=== PATIENT | male | born 1985 | race Caucasian/White ===

== ENCOUNTER 2017-08-09 13:29 | Inpatient (IN) | payer OTHER ==
[~2017-08-09] VITALS: Ht 190.5 cm; Wt 110.0 kg
[2017-08-09 13:31] VITALS: BP 130/87; PULSE 113; RESP 14; TEMP 98.2; O2SAT 99
[2017-08-09 14:35] LABS: BASOPHIL % 0.1 % (0.0-2.0); EOSINOPHIL # 0.1 TH/MM3 (0-0.4); EOSINOPHIL % 0.5 % (0.0-4.0); HEMATOCRIT 46.4 % (39.0-51.0); HEMOGLOBIN 15.9 GM/DL (13.0-17.0); LYMPH % 12.8 % (9.0-44.0); LYMPHOCYTE # 2.1 TH/MM3 (1.0-4.8); MEAN CELL VOLUME 83.2 FL (80.0-100.0); MEAN CORPUSCULAR HEMOGLOBIN 28.4 PG (27.0-34.0); MEAN CORPUSCULAR HGB CONC 34.2 % (32.0-36.0); MEAN PLATELET VOLUME 7.3 FL (7.0-11.0); MONO % 17.9 % (0.0-8.0); MONOCYTE # 2.9 TH/MM3 (0-0.9); NEUT % 68.7 % (16.0-70.0); PLATELET COUNT 327 TH/MM3 (150-450); RED BLOOD COUNT 5.58 MIL/MM3 (4.50-5.90); WHITE BLOOD COUNT 16.1 TH/MM3 (4.0-11.0)
[2017-08-09 14:41] LABS: INTERNATIONAL NORMALIZED RATIO 1.2 RATIO; PROTHROMBIN TIME - PATIENT 12.3 SEC (9.8-11.6)
[2017-08-09 14:53] LABS: ALT (GPT) 38 U/L (12-78); AST (GOT) 22 U/L (15-37); BICARBONATE 30.2 MEQ/L (21.0-32.0); BLOOD UREA NITROGEN 20 MG/DL (7-18); CALCIUM 9.1 MG/DL (8.5-10.1); CHLORIDE 95 MEQ/L (98-107); CREATININE 1.25 MG/DL (0.60-1.30); GLOMERULAR FILTRATION RATE 67 ML/MIN (>89); GLUCOSE,RANDOM 103 MG/DL (74-106); SODIUM (NA) 131 MEQ/L (136-145)
[2017-08-09 14:55] LABS: ALKALINE PHOSPHATASE 93 U/L (45-117); TOTAL BILIRUBIN ADULT 0.4 MG/DL (0.2-1.0); TOTAL PROTEIN 8.5 GM/DL (6.4-8.2)
--- NOTE | 2017-08-09 14:59 | PD ---
HPI Chief Complaint: Facial Pain or Swelling Time Seen by Provider: 14:35 Travel History International Travel<30 days: No Contact w/Intl Traveler<30days: No Traveled to known affect area: No History of Present Illness HPI 32-year-old male presents to the ED for evaluation of four-day history of blistering rash and 8/10 of the right side of his face. Constant, worsened by movement of the face or touch. Pain radiates into the ear, right nostril. He endorses sinus congestion and clear rhinorrhea. He endorses chills, has not measured a fever at home. He endorses increased tearing of the eye. He endorses diminished appetite. He denies headache, dizziness, blurred vision, eye pain, difficulty swallowing his own oral secretions, sore throat. Patient states the rash was preceded by "electric shock" type pain behind the right ear and radiating into the face. He was seen at an outside clinic prior to the rash outbreak and diagnosed with torticollis, prescribed benzodiazepines which he states resolved the neck pain. The next day the rash broke out on his face. He was again seen at the outside clinic and prescribed Flagyl and Cipro. He was told to seek dental follow-up. He saw the dentist and was referred to the oral surgeon who does not see a dental source for his rash. She was concerned about involvement of the medial canthus of the right-sided face and sent him to the ED for evaluation. He endorses history of chickenpox in childhood. PFSH Social History Tobacco Use: No Allergies-Medications (Allergen,Severity, Reaction): Coded Allergies: No Known Allergies (Unverified , 08/09/17) Reported Meds & Prescriptions Reported Meds & Active Scripts Active No Active Prescriptions or Reported Medications Review of Systems Except as stated in HPI: all other systems reviewed are Neg Physical Exam Narrative GENERAL: Well-nourished, well-developed SKIN: Warm and dry. Pustular rash distributed across the right cheek with surrounding warm, tender erythematous edema which includes the medial canthus of the right eye. NO CAMARA SIGN. HEAD: Normocephalic. Atraumatic. EYES: No scleral icterus. No injection or drainage. PERRLA. EOM intact and painless. Fluorescein staining of the right eye reveals no dendritic lesions. ENT: Bilateral cerumen impaction. Nasal mucosa is moist. Right-sided nares with tender edema of the lateral aspect. Oropharynx without erythema, edema or exudate. NECK: Supple, trachea midline. No JVD. + Right-sided anterior cervical lymphadenopathy. CARDIOVASCULAR: Regular rate and rhythm without murmurs, gallops, or rubs. RESPIRATORY: Breath sounds clear and equal bilaterally. No accessory muscle use. GASTROINTESTINAL: Abdomen soft, non-tender, nondistended. + Bowel sounds MUSCULOSKELETAL: No cyanosis, or edema. BACK: Nontender without obvious deformity. No CVA tenderness. Data Data Last Documented VS Vital Signs Date Time Temp Pulse Resp B/P (MAP) Pulse Ox O2 Delivery O2 Flow Rate FiO2 08/09/17 15:16 98 Room Air 08/09/17 13:31 98.2 113 14 Orders Orders Complete Blood Count With Diff (08/09/17 13:33) Comprehensive Metabolic Panel (08/09/17 13:33) Prothrombin Time / Inr (Pt) (08/09/17 13:33) Act Partial Throm Time (Ptt) (08/09/17 13:33) Lactic Acid Sepsis Protocol (08/09/17 13:33) Sepsis Workup Initiated (08/09/17 ) Blood Culture (08/09/17 14:52) Blood Glucose (08/09/17 14:52) Ecg Monitoring (08/09/17 14:52) Iv Access Insert/Monitor (08/09/17 14:52) Oximetry (08/09/17 14:52) Ketorolac Inj (Toradol Inj) (08/09/17 15:00) Methylprednisolone So Succ Inj (Solumedr (08/09/17 15:00) Sodium Chlor 0.9% 1000 Ml Inj (Ns 1000 M (08/09/17 15:15) Blood Culture (08/09/17 15:04) Vancomycin Inj (Vancomycin Inj) (08/09/17 15:15) Ct Facial Bones W Iv Contrast (08/09/17 15:06) Acyclovir (Zovirax) (08/09/17 15:45) Iohexol 350 Inj (Omnipaque 350 Inj) (08/09/17 16:04) Diet Regular Basic (08/09/17 Lunch) Consult Ophthalmology (08/09/17 ) Admit Order (Ed Use Only) (08/09/17 16:56) Labs Laboratory Tests Test 08/09/17 13:45 08/09/17 13:48 White Blood Count 16.1 TH/MM3 Red Blood Count 5.58 MIL/MM3 Hemoglobin 15.9 GM/DL Hematocrit 46.4 % Mean Corpuscular Volume 83.2 FL Mean Corpuscular Hemoglobin 28.4 PG Mean Corpuscular Hemoglobin Concent 34.2 % Red Cell Distribution Width 13.0 % Platelet Count 327 TH/MM3 Mean Platelet Volume 7.3 FL Neutrophils (%) (Auto) 68.7 % Lymphocytes (%) (Auto) 12.8 % Monocytes (%) (Auto) 17.9 % Eosinophils (%) (Auto) 0.5 % Basophils (%) (Auto) 0.1 % Neutrophils # (Auto) 11.0 TH/MM3 Lymphocytes # (Auto) 2.1 TH/MM3 Monocytes # (Auto) 2.9 TH/MM3 Eosinophils # (Auto) 0.1 TH/MM3 Basophils # (Auto) 0.0 TH/MM3 CBC Comment AUTO DIFF Differential Total Cells Counted 100 Neutrophils % (Manual) 66 % Band Neutrophils % 7 % Lymphocytes % 11 % Monocytes % 15 % Eosinophils % 1 % Neutrophils # (Manual) 11.8 TH/MM3 Differential Comment FINAL DIFF MANUAL Toxic Granulation 1+ Toxic Vacuolation PRESENT Platelet Estimate NORMAL Platelet Morphology Comment CLUMPED Prothrombin Time 12.3 SEC Prothromb Time International Ratio 1.2 RATIO Activated Partial Thromboplast Time 34.5 SEC Blood Urea Nitrogen 20 MG/DL Creatinine 1.25 MG/DL Random Glucose 103 MG/DL Total Protein 8.5 GM/DL Albumin 3.0 GM/DL Calcium Level 9.1 MG/DL Alkaline Phosphatase 93 U/L Aspartate Amino Transf (AST/SGOT) 22 U/L Alanine Aminotransferase (ALT/SGPT) 38 U/L Total Bilirubin 0.4 MG/DL Sodium Level 131 MEQ/L Potassium Level 3.8 MEQ/L Chloride Level 95 MEQ/L Carbon Dioxide Level 30.2 MEQ/L Anion Gap 6 MEQ/L Estimat Glomerular Filtration Rate 67 ML/MIN Lactic Acid Level 1.4 mmol/L [facility] Medical Decision Making Medical Screen Exam Complete: Yes Emergency Medical Condition: Yes Differential Diagnosis shingles versus cellulitis versus periorbital cellulitis versus other Narrative Course 32-year-old male presents to the ED for evaluation of four-day history of blistering rash and 8/10 of the right side of his face. Constant, worsened by movement of the face or touch. Pain radiates into the ear, right nostril. He endorses sinus congestion and clear rhinorrhea. He endorses chills, has not measured a fever at home. He endorses increased tearing of the eye. He endorses diminished appetite. Rash was preceded by "electric shock" type pain behind the right ear and radiating into the face. He was seen at outpatient clinic, prescribed Flagyl and Cipro. He sought dental follow-up at their recommendation. Oral surgeon evaluated today and does not see a dental source of the rash. He endorses childhood history of chickenpox. Patient's afebrile, pulse 113, BP 130/87 on presentation. Patient has a blistering erythematous rash across the right side of the face that does not cross the midline. The medial canthus of the right eye is involved. However, there are no dendritic lesions with fluorescein staining. He denies pain in the eye. No Mingo sign. There is positive anterior cervical lymphadenopathy on the right. IV was established. Patient was administered IV Solu-Medrol, 1 L normal saline, 30 mg Toradol. Blood cultures were obtained and the patient was administered 1 g of vancomycin. CBC: WBC 16.1 with bandemia. INR 1.2. CMP: Sodium 131, chloride 95. BUN 20, creatinine 1.25. Lactic acid 1.4. Maxillofacial CT: Subcutaneous stranding in the right infraorbital region extending laterally towards the temporal region. Findings are characteristic of regional cellulitis. No abscess. Chronic sinusitis in the right ethmoid air cells, left sphenoid sinus and bilateral posterior maxillary antra. Osseous structures intact per radiology read. Patient's meet sepsis criteria. I spoke with Dr. Valencia, lime supervisor. We discussed the physical exam findings as well as the CT. She will consult on the patient tomorrow morning. I spoke with Dr. Myers who agrees to accept the patient to the medicine service. Please see medicine notes for disposition. Sepsis Criteria SIRS Criteria (2 or more): Heart rate over 90, WBC > 83868, < 4000 or > 10% bands Sepsis Criteria (SIRS+source): Infect source susp/known Scripts No Active Prescriptions or Reported Meds Sheeba Romano Aug 09, 2017 14:59
[2017-08-09] MEDS ORDERED: KETOROLAC TROMETHAMINE 30 MG/ML (IVP) VIAL IVP ONE (15:00)
[2017-08-09] MEDS ORDERED: methylPREDNISolone SOD SUCC 125 MG/2 ML VIAL IV PUSH ONE (15:00)
[2017-08-09] MEDS ORDERED: VANCOMYCIN INJ 1,000 MG in SODIUM CHLOR 0.9% 250 ML INJ 250 ML IV ONE (15:15)
[2017-08-09] MEDS ORDERED: SODIUM CHLOR 0.9% 1000 ML INJ 1,000 ML IV ONE (15:15)
[2017-08-09 15:16] VITALS: O2SAT 98
[2017-08-09 15:42] LABS: BANDS 7 % (0-6); LYMPHOCYTES 11 % (9-44); MONOCYTES 15 % (0-8); NEUTROPHIL # MANUAL DIFF 11.8 TH/MM3 (1.8-7.7); POLYS (SEG NEUTROPHILS) 66 % (16-70)
[2017-08-09 15:43] LABS: TOXIC GRANULATION 1+ (NORMAL); TOXIC VACUOLATION PRESENT (NONE SEEN)
[2017-08-09] MEDS ORDERED: ACYCLOVIR 800 MG TAB PO ONE (15:45)
[2017-08-09] MEDS ORDERED: IOHEXOL 350 MG/ML 10 ML VIAL (for RAD DIAG) IVCONTRAST ONE (16:04)
--- NOTE | 2017-08-09 16:15 | RADRPT ---
EXAM DATE/TIME: 08/09/2017 15:59 [facility] COMPARISON: No previous studies available for comparison. INDICATIONS : Right facial redness and swelling. IV CONTRAST: 95 cc Omnipaque 350 (iohexol) IV RADIATION DOSE: 49.46 CTDIvol (mGy) MEDICAL HISTORY : None SURGICAL HISTORY : None. ENCOUNTER: Initial ACUITY: 3 days PAIN SCALE: 4/10 LOCATION: Right facial TECHNIQUE: Volumetric scanning of the facial bones was performed. Using automated exposure control and adjustme nt of the mA and/or kV according to patient size, radiation dose was kept as low as reasonably achiev able to obtain optimal diagnostic quality images. DICOM format image data is available electronicall y for review and comparison. FINDINGS: ORBITS: The orbital and infraorbital osseous structures are intact. The retroconal structures have a normal configuration. No radiopaque foreign bodies are seen. NASAL BONE: The nasal bone and maxillary spine are intact ZYGOMATIC ARCHES: Symmetric without evidence of fracture. SINUSES: Mucoperiosteal thickening in the left sphenoid, right ethmoid air cells and bilateral posterior maxil terence antra characteristic of chronic sinusitis. NASAL CAVITY: The nasal septum is intact and midline. The lacrimal ducts are intact. SOFT TISSUES: No radiopaque foreign bodies seen. Subcutaneous stranding in the right infraorbital distribution exte nding laterally. INTRACRANIAL: No intracranial air seen. CRIBIFORM PLATE: Grossly intact. CONCLUSION: 1. Subcutaneous stranding in the right infraorbital region extending laterally towards the temporal r egion. Findings are characteristic of regional cellulitis. No abscess. 2. Chronic sinusitis in the right ethmoid air cells, left sphenoid sinus and bilateral posterior maxi llary antra. 3. Osseous structures are intact Kasi Pittman MD on August 09, 2017 at 16:09 Board Certified Radiologist. This report was verified electronically.
--- NOTE | 2017-08-09 16:31 | PD ---
Physical Exam Date Seen by Provider: Aug 09, 2017 Time Seen by Provider: 15:00 Narrative I, Dr. Payan, have reviewed the advance practice practitioner's documentation and am in agreement, met with the patient face to face, made the diagnosis, and the medical decision making was done by me. *My assessment and Findings: Patient seen and evaluated with PA, please see PA note for further details. Here because of worsening facial redness, rash and pain. Sent in by urgent care. This has the appearance of a right facial cellulitis. IV antibiotics were initiated in the ER. Lab work is indicative of sepsis as well and plan would be to admit him for IV antibiotics. Laboratory Tests Test 08/09/17 13:45 08/09/17 13:48 White Blood Count 16.1 TH/MM3 (4.0-11.0) Monocytes (%) (Auto) 17.9 % (0.0-8.0) Neutrophils # (Auto) 11.0 TH/MM3 (1.8-7.7) Monocytes # (Auto) 2.9 TH/MM3 (0-0.9) Band Neutrophils % 7 % (0-6) Monocytes % 15 % (0-8) Neutrophils # (Manual) 11.8 TH/MM3 (1.8-7.7) Toxic Granulation 1+ (NORMAL) Toxic Vacuolation PRESENT (NONE SEEN) Platelet Morphology Comment CLUMPED (NORMAL) Prothrombin Time 12.3 SEC (9.8-11.6) Activated Partial Thromboplast Time 34.5 SEC (24.3-30.1) Blood Urea Nitrogen 20 MG/DL (7-18) Total Protein 8.5 GM/DL (6.4-8.2) Albumin 3.0 GM/DL (3.4-5.0) Sodium Level 131 MEQ/L (136-145) Chloride Level 95 MEQ/L (98-107) Estimat Glomerular Filtration Rate 67 ML/MIN (>89) Last [address] 08/09/17 1506 Signed Impressions: Service Date/Time: Wednesday, August 09, 2017 15:59 - CONCLUSION: 1. Subcutaneous stranding in the right infraorbital region extending laterally towards the temporal region. Findings are characteristic of regional cellulitis. No abscess. 2. Chronic sinusitis in the right ethmoid air cells, left sphenoid sinus and bilateral posterior maxillary antra. 3. Osseous structures are intact Kasi Pittman MD Data Data Last Documented VS Vital Signs Date Time Temp Pulse Resp B/P (MAP) Pulse Ox O2 Delivery O2 Flow Rate FiO2 08/09/17 15:16 98 Room Air 08/09/17 13:31 98.2 113 14 Orders Orders Complete Blood Count With Diff (08/09/17 13:33) Comprehensive Metabolic Panel (08/09/17 13:33) Prothrombin Time / Inr (Pt) (08/09/17 13:33) Act Partial Throm Time (Ptt) (08/09/17 13:33) Lactic Acid Sepsis Protocol (08/09/17 13:33) Sepsis Workup Initiated (08/09/17 ) Blood Culture (08/09/17 14:52) Blood Glucose (08/09/17 14:52) Ecg Monitoring (08/09/17 14:52) Iv Access Insert/Monitor (08/09/17 14:52) Oximetry (08/09/17 14:52) Ketorolac Inj (Toradol Inj) (08/09/17 15:00) Methylprednisolone So Succ Inj (Solumedr (08/09/17 15:00) Sodium Chlor 0.9% 1000 Ml Inj (Ns 1000 M (08/09/17 15:15) Blood Culture (08/09/17 15:04) Vancomycin Inj (Vancomycin Inj) (08/09/17 15:15) Ct Facial Bones W Iv Contrast (08/09/17 15:06) Acyclovir (Zovirax) (08/09/17 15:45) Iohexol 350 Inj (Omnipaque 350 Inj) (08/09/17 16:04) Labs Laboratory Tests Test 08/09/17 13:45 08/09/17 13:48 White Blood Count 16.1 TH/MM3 Red Blood Count 5.58 MIL/MM3 Hemoglobin 15.9 GM/DL Hematocrit 46.4 % Mean Corpuscular Volume 83.2 FL Mean Corpuscular Hemoglobin 28.4 PG Mean Corpuscular Hemoglobin Concent 34.2 % Red Cell Distribution Width 13.0 % Platelet Count 327 TH/MM3 Mean Platelet Volume 7.3 FL Neutrophils (%) (Auto) 68.7 % Lymphocytes (%) (Auto) 12.8 % Monocytes (%) (Auto) 17.9 % Eosinophils (%) (Auto) 0.5 % Basophils (%) (Auto) 0.1 % Neutrophils # (Auto) 11.0 TH/MM3 Lymphocytes # (Auto) 2.1 TH/MM3 Monocytes # (Auto) 2.9 TH/MM3 Eosinophils # (Auto) 0.1 TH/MM3 Basophils # (Auto) 0.0 TH/MM3 CBC Comment AUTO DIFF Differential Total Cells Counted 100 Neutrophils % (Manual) 66 % Band Neutrophils % 7 % Lymphocytes % 11 % Monocytes % 15 % Eosinophils % 1 % Neutrophils # (Manual) 11.8 TH/MM3 Differential Comment FINAL DIFF MANUAL Toxic Granulation 1+ Toxic Vacuolation PRESENT Platelet Estimate NORMAL Platelet Morphology Comment CLUMPED Prothrombin Time 12.3 SEC Prothromb Time International Ratio 1.2 RATIO Activated Partial Thromboplast Time 34.5 SEC Blood Urea Nitrogen 20 MG/DL Creatinine 1.25 MG/DL Random Glucose 103 MG/DL Total Protein 8.5 GM/DL Albumin 3.0 GM/DL Calcium Level 9.1 MG/DL Alkaline Phosphatase 93 U/L Aspartate Amino Transf (AST/SGOT) 22 U/L Alanine Aminotransferase (ALT/SGPT) 38 U/L Total Bilirubin 0.4 MG/DL Sodium Level 131 MEQ/L Potassium Level 3.8 MEQ/L Chloride Level 95 MEQ/L Carbon Dioxide Level 30.2 MEQ/L Anion Gap 6 MEQ/L Estimat Glomerular Filtration Rate 67 ML/MIN Lactic Acid Level 1.4 mmol/L [facility] Medical Record Reviewed: Yes Supervised Visit with CLAUDIA: Yes Diagnosis Primary Impression: Facial cellulitis Admitting Information Admitting Physician Requests: Admit Scripts No Active Prescriptions or Reported Meds Maikel Payan MD Aug 09, 2017 16:31
[2017-08-09 17:47] VITALS: BP 104/69; PULSE 82; RESP 17; TEMP 98.2; O2SAT 97
[2017-08-09] MEDS ORDERED: ACETAMINOPHEN/HYDROcodone 325 MG/10 MG TAB PO PRN (18:00)
[2017-08-09] MEDS ORDERED: LACTULOSE SYRUP 20 GM/30 ML CUP PO PRN (18:00)
[2017-08-09] MEDS ORDERED: ONDANSETRON HCL 4 MG/2 ML VIAL IVP PRN (18:00)
[2017-08-09] MEDS ORDERED: NALOXONE HCL 0.4 MG/ML AMP IV PUSH PRN (18:00)
[2017-08-09] MEDS ORDERED: SENNOSIDES 8.6 MG TAB PO PRN (18:00)
[2017-08-09] MEDS ORDERED: MORPHINE SULFATE 2 MG/ML INJ IV PUSH PRN (18:00)
[2017-08-09] MEDS ORDERED: ACETAMINOPHEN 325 MG TAB PO PRN (18:00)
[2017-08-09] MEDS ORDERED: MAGNESIUM HYDROXIDE SUSP 30 ML CUP PO PRN (18:00)
[2017-08-09] MEDS ORDERED: ACETAMINOPHEN/HYDROcodone 325 MG/5 MG TAB PO PRN (18:00)
[2017-08-09] MEDS ORDERED: BISACODYL 10 MG SUPP RECTAL PRN (18:00)
[2017-08-09] MEDS ORDERED: SODIUM CHLORIDE 0.9% FLUSH 10 ML FLUSH IV FLUSH PRN (18:00)
--- NOTE | 2017-08-09 18:16 | HHI.HP ---
HPI Service [facility] Hospitalists Primary Care Physician Non-Staff Admission Diagnosis right facial cellulitis Diagnoses: Chief Complaint: Right sided facial swelling, redness and pain Travel History International Travel<30 Days: No Contact w/Intl Traveler <30 Da: No Traveled to Known Affected Are: No Sepsis Criteria SIRS Criteria (2 or more): Heart rate over 90, WBC > 71077, < 4000 or > 10% bands Sepsis Criteria (SIRS+source): Infect source susp/known Criteria Outcome: Meets sepsis criteria History of Present Illness Written by Jayda Castro, acting as scribe for Dr. Myers on 08/09/17 at 18: 15. This is a 32-year-old male without any significant past medical history who presents to [facility] ED with complaints of right-sided facial pain, swelling and erythema x 4 days. Patient states on Monday he developed tender right sided bump followed by worsening redness, swelling and pain over the right side of the face. He went to urgent care on Monday and was prescribed clindamycin and Flagyl. Despite being compliant with medication, patient's symptoms continued to worsen. He was seen by a dentist this morning and was then referred to an oral surgeon who did not believe that he had a dental source for the right-sided facial rash and advised him to come into the ED. He endorses associated fever, chills and night sweats for the past 3 days. He did not record his temperature. He reports generalized feeling of malaise, nausea and poor appetite. States that he's had frontal headache for the past 3 days. He denies any difficulty swallowing or opening his mouth. He endorses associated nasal congestion and clear rhinorrhea but does report that he had some blood-tinged mucus this morning. He denies any vision changes or eye pain. He denies any ear pain or drainage. He denies any ill contacts at home. He denies any history of STDs. He does endorse history of chickenpox as a child. The past 2-3 weeks he states he's had mild sore throat and increased nasal congestion. He denies any chest pain or shortness of breath. Denies any vomiting or abdominal pain. Review of Systems Except as stated in HPI: all other systems reviewed are Neg Past Family Social History Past Medical History Patient denies any previous medical history Past Surgical History Patient denies any previous surgical history Reported Medications Patient denies any home medications Allergies: Coded Allergies: No Known Allergies (Unverified , 08/09/17) Family History Reviewed with patient, noncontributory Social History Patient denies any tobacco use. He reports occasional 2 drinks/month EtOH consumption. He denies any illicit drug use. Physical Exam Vital Signs Vital Signs Date Time Temp Pulse Resp B/P (MAP) Pulse Ox O2 Delivery O2 Flow Rate FiO2 08/09/17 17:47 98.2 82 17 104/69 (81) 97 Room Air 08/09/17 15:16 98 Room Air 08/09/17 13:31 98.2 113 14 130/87 (101) 99 Physical Exam GENERAL: This is a well-nourished, well-developed young male patient, in no apparent distress. Awake and alert. Appears comfortable at present. SKIN: Warm and dry. (+) Right-sided pustular facial rash with warmth, edema and extensive erythema. (+)tender to palpation. No apparent involvement of the right ear or right eye. Few scattered keloid scars on upper back and chest. HEAD: Atraumatic. EYES: Pupils equal round and reactive. Extraocular motions intact. No scleral icterus. No injection or drainage. ENT: Nose without bleeding, purulent drainage or septal hematoma. Throat without erythema, tonsillar hypertrophy or exudate. Uvula midline. Airway patent. NECK: Trachea midline. No lymphadenopathy. Supple, nontender, no meningeal signs. CARDIOVASCULAR: Regular rate and rhythm without murmurs, gallops, or rubs. RESPIRATORY: Clear to auscultation. Breath sounds equal bilaterally. No wheezes , rales, or rhonchi. GASTROINTESTINAL: Abdomen soft, non-tender, nondistended. No hepato-splenomegaly , or palpable masses. No guarding. MUSCULOSKELETAL: Extremities without clubbing, cyanosis, or edema. No joint tenderness, effusion, or edema noted. No calf tenderness. NEUROLOGICAL: Awake and alert. Cranial nerves II through XII grossly intact. Motor and sensory grossly within normal limits. Five out of 5 muscle strength in all muscle groups. Normal speech. Laboratory Laboratory Tests Test 08/09/17 13:45 08/09/17 13:48 White Blood Count 16.1 Red Blood Count 5.58 Hemoglobin 15.9 Hematocrit 46.4 Mean Corpuscular Volume 83.2 Mean Corpuscular Hemoglobin 28.4 Mean Corpuscular Hemoglobin Concent 34.2 Red Cell Distribution Width 13.0 Platelet Count 327 Mean Platelet Volume 7.3 Neutrophils (%) (Auto) 68.7 Lymphocytes (%) (Auto) 12.8 Monocytes (%) (Auto) 17.9 Eosinophils (%) (Auto) 0.5 Basophils (%) (Auto) 0.1 Neutrophils # (Auto) 11.0 Lymphocytes # (Auto) 2.1 Monocytes # (Auto) 2.9 Eosinophils # (Auto) 0.1 Basophils # (Auto) 0.0 CBC Comment AUTO DIFF Differential Total Cells Counted 100 Neutrophils % (Manual) 66 Band Neutrophils % 7 Lymphocytes % 11 Monocytes % 15 Eosinophils % 1 Neutrophils # (Manual) 11.8 Differential Comment FINAL DIFF MANUAL Toxic Granulation 1+ Toxic Vacuolation PRESENT Platelet Estimate NORMAL Platelet Morphology Comment CLUMPED Prothrombin Time 12.3 Prothromb Time International Ratio 1.2 Activated Partial Thromboplast Time 34.5 Blood Urea Nitrogen 20 Creatinine 1.25 Random Glucose 103 Total Protein 8.5 Albumin 3.0 Calcium Level 9.1 Alkaline Phosphatase 93 Aspartate Amino Transf (AST/SGOT) 22 Alanine Aminotransferase (ALT/SGPT) 38 Total Bilirubin 0.4 Sodium Level 131 Potassium Level 3.8 Chloride Level 95 Carbon Dioxide Level 30.2 Anion Gap 6 Estimat Glomerular Filtration Rate 67 Lactic Acid Level 1.4 Date/Time Source Procedure Growth Status 08/09/17 15:10 Blood Line Aerobic Blood Culture Pending Received 08/09/17 15:10 Blood Line Anaerobic Blood Culture Pending Received Result Diagram: 08/09/17 1345 08/09/17 1345 Imaging Last Impressions Maxillofacial CT 08/09/17 1506 Signed Impressions: Service Date/Time: Wednesday, August 09, 2017 15:59 - CONCLUSION: 1. Subcutaneous stranding in the right infraorbital region extending laterally towards the temporal region. Findings are characteristic of regional cellulitis. No abscess. 2. Chronic sinusitis in the right ethmoid air cells, left sphenoid sinus and bilateral posterior maxillary antra. 3. Osseous structures are intact MD Salty [place] VTE Risk Assessment Salty VTE Risk Assessment: No/Low Risk (score <= 1) Salty Risk Assessment Model Point Value = 1 Point Value = 2 Point Value = 3 Point Value = 5 Age 41-60 Minor surgery BMI > 25 kg/m2 Swollen legs Varicose veins or History of unexplained or recurrent spontaneous Oral contraceptives or hormone replacement Sepsis (< 1 month) Serious lung disease, including pneumonia (< 1 month) Abnormal pulmonary function Acute myocardial infarction Congestive heart failure (< 1 month) History of inflammatory bowel disease Medical patient at bed rest Age 61-74 Arthroscopic surgery Major open surgery (> 45 min) Laparoscopic surgery (> 45 min) Malignancy Confined to bed (> 72 hours) Immobilizing plaster cast Central venous access Age >= 75 History of VTE Family history of VTE Factor V Leiden Prothrombin [id number] Lupus anticoagulant Anticardiolipin antibodies Elevated serum homocysteine Heparin-induced thrombocytopenia Other congenital or acquired thrombophilia Stroke (< 1 month) Elective arthroplasty Hip, pelvis, or leg fracture Acute spinal cord injury (< 1 month) Prophylaxis Regimen Total Risk Factor Score Risk Level Prophylaxis Regimen 0-1 Low Early ambulation 2 Moderate Order ONE of the following: *Sequential Compression Device (SCD) *Heparin 5000 units SQ BID 3-4 Higher Order ONE of the following medications: *Heparin 5000 units SQ TID *Enoxaparin/Lovenox 40 mg SQ daily (WT < 150 kg, CrCl > 30 mL/min) *Enoxaparin/Lovenox 30 mg SQ daily (WT < 150 kg, CrCl > 10-29 mL/min) *Enoxaparin/Lovenox 30 mg SQ BID (WT < 150 kg, CrCl > 30 mL/min) AND/OR *Sequential Compression Device (SCD) 5 or more Highest Order ONE of the following medications: *Heparin 5000 units SQ TID (Preferred with Epidurals) *Enoxaparin/Lovenox 40 mg SQ daily (WT < 150 kg, CrCl > 30 mL/min) *Enoxaparin/Lovenox 30 mg SQ daily (WT < 150 kg, CrCl > 10-29 mL/min) *Enoxaparin/Lovenox 30 mg SQ BID (WT < 150 kg, CrCl > 30 mL/min) AND *Sequential Compression Device (SCD) Assessment and Plan Assessment and Plan 32-year-old male without any significant past medical history who presents to [facility] ED with complaints of right-sided facial pain, swelling and erythema x 4 days. Sepsis with leukocytosis, bandemia, tachycardia and right sided facial cellulitis - IVF - monitor white count - IV Vancomycin, consult pharmacy to dose - follow up on blood culture results Right sided facial cellulitis, failed outpatient treatment Suspect Erysipelas - CT maxillofacial shows subcutaneous stranding in the right infraorbital region extending laterally towards the temporal region findings characteristic of regional cellulitis, no abscess, chronic sinusitis, images reviewed by me - Consult ID, appreciate assistance - IV acyclovir, vancomycin and steroids - Pain management with bowel regimen - obtain HSV culture - Ophthalmology consulted while patient in the ED, appreciate assistance Hyponatremia - Suspect due to poor oral intake/dehydration - IVF - repeat sodium level in am DVT prophylaxis - Bilateral SCD/FERNY hose Discussed Condition With ED physician, patient, ED PA Physician Certification 2 Midnight Certification Type: Admission for Inpatient Services Order for Inpatient Services The services are ordered in accordance with Medicare regulations or non- Medicare payer requirements, as applicable. In the case of services not specified as inpatient-only, they are appropriately provided as inpatient services in accordance with the 2-midnight benchmark. Estimated LOS (days): 3 3 days is the estimated time the patient will need to remain in the hospital, assuming treatment plan goals are met and no additional complications. Post-Hospital Plan: Not yet determined Jayda Castro Aug 09, 2017 18:15 Tayo Myers MD Aug 09, 2017 22:25
[2017-08-09] MEDS ORDERED: Vancomycin Consult Pharmacy 1 EA OTHER SCH (18:30)
[2017-08-09 19:54] VITALS: BP 132/79; PULSE 85; RESP 16; TEMP 98.1; O2SAT 98
[2017-08-09] MEDS: SODIUM CHLOR 0.9% 1000 ML INJ 1,000 ML IV SCH (20:18)
[2017-08-09] MEDS: SODIUM CHLORIDE 0.9% FLUSH 10 ML FLUSH IV FLUSH SCH (20:18)
[2017-08-09] MEDS: DOCUSATE SODIUM 50 MG/SENNA 8.6 MG TAB PO SCH (20:18)
[2017-08-09] MEDS: ACYCLOVIR INJ 1,050 MG in SODIUM CHLORIDE 0.9% INJ 150 ML IV SCH (20:18)
[2017-08-09] MEDS: VANCOMYCIN INJ 1,800 MG in SODIUM CHLORID 0.9% 500 ML INJ 500 ML IV SCH (22:15)
[2017-08-10] VITALS (8 sets, daily range): BP systolic 118–135; BP diastolic 70–79; PULSE 74–98; RESP 16–18; TEMP 97.7–98.7; O2SAT 95–99
[2017-08-10] MEDS: ALUMINUM/MAGNESIUM/SIMETH 30 ML CUP PO PRN ×3 (00:54→22:36)
[2017-08-10] MEDS: ACYCLOVIR INJ 1,050 MG in SODIUM CHLORIDE 0.9% INJ 150 ML IV SCH ×2 (04:20→11:45)
[2017-08-10] MEDS: SODIUM CHLOR 0.9% 1000 ML INJ 1,000 ML IV SCH ×2 (06:00→16:39)
[2017-08-10 07:19] LABS: AUTOMATED NEUTROPHIL # 15.3 TH/MM3 (1.8-7.7); HEMATOCRIT 39.9 % (39.0-51.0); LYMPH % 6.9 % (9.0-44.0); LYMPHOCYTE # 1.2 TH/MM3 (1.0-4.8); MEAN CELL VOLUME 83.5 FL (80.0-100.0); MEAN CORPUSCULAR HEMOGLOBIN 29.2 PG (27.0-34.0); MEAN PLATELET VOLUME 7.4 FL (7.0-11.0); MONO % 3.6 % (0.0-8.0); MONOCYTE # 0.6 TH/MM3 (0-0.9); NEUT % 89.5 % (16.0-70.0); PLATELET COUNT 299 TH/MM3 (150-450); RED BLOOD COUNT 4.78 MIL/MM3 (4.50-5.90); WHITE BLOOD COUNT 17.1 TH/MM3 (4.0-11.0)
[2017-08-10 07:45] LABS: ALBUMIN 2.4 GM/DL (3.4-5.0); ALKALINE PHOSPHATASE 74 U/L (45-117); ALT (GPT) 33 U/L (12-78); AST (GOT) 18 U/L (15-37); BICARBONATE 24.7 MEQ/L (21.0-32.0); BLOOD UREA NITROGEN 24 MG/DL (7-18); CALCIUM 8.3 MG/DL (8.5-10.1); CHLORIDE 101 MEQ/L (98-107); GLOMERULAR FILTRATION RATE 70 ML/MIN (>89); GLUCOSE,RANDOM 215 MG/DL (74-106); SODIUM (NA) 135 MEQ/L (136-145); TOTAL BILIRUBIN ADULT 0.3 MG/DL (0.2-1.0); TOTAL PROTEIN 7.1 GM/DL (6.4-8.2)
[2017-08-10] MEDS: SODIUM CHLORIDE 0.9% FLUSH 10 ML FLUSH IV FLUSH SCH ×2 (08:41→21:00)
[2017-08-10] MEDS: DOCUSATE SODIUM 50 MG/SENNA 8.6 MG TAB PO SCH ×2 (08:42→21:00)
[2017-08-10] MEDS: VANCOMYCIN INJ 1,800 MG in SODIUM CHLORID 0.9% 500 ML INJ 500 ML IV SCH (08:42)
[2017-08-10] MEDS ORDERED: ALPRAZolam 0.5 MG TAB PO PRN (09:00)
[2017-08-10] MEDS ORDERED: methylPREDNISolone SOD SUCC 40 MG/1 ML VIAL IV PUSH SCH (09:00)
--- NOTE | 2017-08-10 09:00 | PD.CONS ---
History of Present Illness Service Ophthalmology Consult Requested By Reason for Consult preseptal cellulitis Primary Care Physician Non-Staff Diagnoses: History of Present Illness 32 yo M c/o right-sided facial pain, swelling and erythema for 4 days. Patient states on Monday he developed tender right sided bump followed by worsening redness, swelling and pain over the right side of the face. He went to urgent care on Monday and was prescribed clindamycin and Flagyl, but symptoms continued to worsen. He was told it may be a tooth abscess so he went to see a dentist yesterday - they referred him to an oral surgeon who advised him to come into the ED. He denies any vision changes or eye pain. CT Maxillofacial consistent with right preseptal cellulitis. Past Family Social History Allergies: Coded Allergies: No Known Allergies (Unverified , 08/09/17) Physical Exam Vital Signs Vital Signs Date Time Temp Pulse Resp B/P (MAP) Pulse Ox O2 Delivery O2 Flow Rate FiO2 08/10/17 08:22 96 21 08/10/17 08:02 97.7 94 18 127/74 (91) 96 08/10/17 04:17 98.5 81 16 124/79 (94) 97 08/10/17 00:02 98.2 74 16 118/70 (86) 98 08/09/17 19:54 98.1 85 16 132/79 (96) 98 08/09/17 17:47 98.2 82 17 104/69 (81) 97 Room Air 08/09/17 15:16 98 Room Air 08/09/17 13:31 98.2 113 14 130/87 (101) 99 Physical Exam Va sc at near OD 20/20, OS 20/20 EOM full OU, no diplopia CVF full OU Pupils 2-1 no APD OU IOP normal to palpation OU Anterior exam OD - erythema and edema on right side of face and around eyelid, C/S W&Q, K clear, AC deep, pupil round, lens clear OS - normal eyelid, C/S W&Q, K clear, AC deep, pupil round, lens clear Laboratory Laboratory Tests Test 08/09/17 13:45 08/09/17 13:48 08/10/17 06:45 White Blood Count 16.1 17.1 Red Blood Count 5.58 4.78 Hemoglobin 15.9 14.0 Hematocrit 46.4 39.9 Mean Corpuscular Volume 83.2 83.5 Mean Corpuscular Hemoglobin 28.4 29.2 Mean Corpuscular Hemoglobin Concent 34.2 35.0 Red Cell Distribution Width 13.0 13.0 Platelet Count 327 299 Mean Platelet Volume 7.3 7.4 Neutrophils (%) (Auto) 68.7 89.5 Lymphocytes (%) (Auto) 12.8 6.9 Monocytes (%) (Auto) 17.9 3.6 Eosinophils (%) (Auto) 0.5 0.0 Basophils (%) (Auto) 0.1 0.0 Neutrophils # (Auto) 11.0 15.3 Lymphocytes # (Auto) 2.1 1.2 Monocytes # (Auto) 2.9 0.6 Eosinophils # (Auto) 0.1 0.0 Basophils # (Auto) 0.0 0.0 CBC Comment AUTO DIFF DIFF FINAL Differential Total Cells Counted 100 Neutrophils % (Manual) 66 Band Neutrophils % 7 Lymphocytes % 11 Monocytes % 15 Eosinophils % 1 Neutrophils # (Manual) 11.8 Differential Comment FINAL DIFF MANUAL Toxic Granulation 1+ Toxic Vacuolation PRESENT Platelet Estimate NORMAL Platelet Morphology Comment CLUMPED Prothrombin Time 12.3 Prothromb Time International Ratio 1.2 Activated Partial Thromboplast Time 34.5 Blood Urea Nitrogen 20 24 Creatinine 1.25 1.20 Random Glucose 103 215 Total Protein 8.5 7.1 Albumin 3.0 2.4 Calcium Level 9.1 8.3 Alkaline Phosphatase 93 74 Aspartate Amino Transf (AST/SGOT) 22 18 Alanine Aminotransferase (ALT/SGPT) 38 33 Total Bilirubin 0.4 0.3 Sodium Level 131 135 Potassium Level 3.8 4.0 Chloride Level 95 101 Carbon Dioxide Level 30.2 24.7 Anion Gap 6 9 Estimat Glomerular Filtration Rate 67 70 Lactic Acid Level 1.4 Date/Time Source Procedure Growth Status 08/09/17 15:10 Blood Line Aerobic Blood Culture Pending Received 08/09/17 15:10 Blood Line Anaerobic Blood Culture Pending Received Result Diagram: 08/10/17 0645 08/10/1745 Assessment and Plan Problem List: (1) Preseptal cellulitis of left eye ICD Codes: L03.213 - Periorbital cellulitis Plan: No orbital involvement. Continue IV antibiotics per primary team. Margot Valencia MD Aug 10, 2017 09:00
--- NOTE | 2017-08-10 12:41 | PD.CONS ---
History of Present Illness Service Infectious disease Consult Requested By Liz Cross Reason for Consult Evaluate patient with facial cellulitis, has lesions on the right side of the face Primary Care Physician Non-Staff Diagnoses: History of Present Illness Patient seen and examined. Records reviewed. Patient is a 32-year-old male, with no significant past medical history, presented to the hospital complaining of swelling on his right face 4 days. Patient stated that about 10 days ago he noticed a painful bump on the left side of his neck. This was associated with some shooting pain behind his right ear. He had pain with movement of his neck, and he went to the emergency room, and he was diagnosed to have torticollis. He was given a Medrol Dosepak and Valium, and his symptoms improved. The pain on his neck and ear resolved, but he still has a lump on the left neck which had gotten smaller. About for 5 days ago, he felt a mildly tender bump on his right jaw that felt like it was the beginning of a pimple. It started getting bigger, and he notices some redness initially on his jaw. He went to an urgent care center and he received an IM antibiotic, and he was instructed to follow-up with his dentist. He was given clindamycin and Flagyl. Patient stated that he was taking his antibiotics as prescribed. The redness started spreading on his right cheek, and he went to see the surgeon, and the office so his face, and instructed him to go to the hospital for further evaluation and treatment. Highest temperature has been about 99. Denies any chills. He has not had any sore throat or any other respiratory complaint. There's been no GI or any urinary complaints. Patient states that he gets pimples on and off and last time he had them it was on his chest and on his back. He denies having any problem with ingrown hair, although he is very hairy. He has not had any episode of large abscesses that required medical attention and debridement or drainage. Patient has not been febrile since admission. CT of the face is showing evidence of cellulitis on the right side of his face. His WBC is elevated. Infectious disease consultation has been requested to evaluate the patient with facial cellulitis, and some lesions on his cheek. Review of Systems Constitutional: DENIES: Fever, Chills Eyes: DENIES: Eye pain, Vision loss, Photosensitivity, Double Vision Ears, nose, mouth, throat: DENIES: Nasal discharge, Oral lesions, Throat pain, Hoarseness, Ear Pain, Sinus Pain, Toothache Respiratory: DENIES: Cough, Shortness of breath Cardiovascular: DENIES: Chest pain, Palpitations, Dyspnea on Exertion Gastrointestinal: DENIES: Abdominal pain, Constipation, Diarrhea, Nausea, Vomiting Genitourinary: DENIES: Urgency, Hematuria, Dysuria, Nocturia Musculoskeletal: DENIES: Joint pain, Joint Swelling Integumentary: COMPLAINS OF: Rash Neurologic: DENIES: Localized weakness Psychiatric: DENIES: Hallucinations Past Family Social History Allergies: Coded Allergies: No Known Allergies (Unverified , 08/09/17) Past Medical History Problem with acne when he was younger, and has developed keloid scars in his back Past Surgical History None Active Ordered Medications Current Medications Medications (Trade) Dose Ordered Sig/Lexis Route Start Time Stop Time Status Last Admin (NS Flush) 2 ml UNSCH PRN IV FLUSH 08/09/17 18:00 (NS Flush) 2 ml BID IV FLUSH 08/09/17 21:00 08/10/17 08:41 (Tylenol) 650 mg Q4H PRN PO 08/09/17 18:00 (Zofran Inj) 4 mg Q6H PRN IVP 08/09/17 18:00 (Narcan Inj) 0.4 mg UNSCH PRN IV PUSH 08/09/17 18:00 (Zeina-Colace) 1 tab BID PO 08/09/17 21:00 (Milk Of Magnesia Liq) 30 ml Q12H PRN PO 08/09/17 18:00 (Senokot) 17.2 mg Q12H PRN PO 08/09/17 18:00 (Dulcolax Supp) 10 mg DAILY PRN RECTAL 08/09/17 18:00 (Lactulose Liq) 30 ml DAILY PRN PO 08/09/17 18:00 Acyclovir Sodium 1050 mg/Sodium Chloride 150 ml @ 150 mls/hr Q8H IV 08/09/17 20:00 08/10/17 11:45 ([place] 5-325 Mg) 1 tab Q6H PRN PO 08/09/17 18:00 ([place] 10-325 Mg) 1 tab Q6H PRN PO 08/09/17 18:00 (Morphine Inj) 2 mg Q4H PRN IV PUSH 08/09/17 18:00 (SoluMEDROL INJ) 40 mg DAILY IV PUSH 08/10/17 09:00 08/10/17 08:41 Vancomycin HCl 1800 mg/Sodium Chloride 518 ml @ 250 mls/hr Q12H IV 08/09/17 21:00 08/10/17 08:42 Pharmacy Profile Note 0 ml @ 0 mls/hr UNSCH OTHER 08/09/17 18:30 Sodium Chloride 1,000 ml @ 100 mls/hr Q10H IV 08/09/17 20:00 08/09/17 20:18 Miscellaneous Information SPECIFIC LAB TO BE MELY... ONCE ONCE .XX 08/11/17 08:45 08/11/17 08:46 (Mag-Al Plus Susp Liq) 30 ml PCHS PRN PO 08/10/17 00:45 08/10/17 02:41 (Xanax) 0.5 mg Q8H PRN PO 08/10/17 09:00 Family History Noncontributory Social History Patient denies any tobacco use. He reports occasional 2 drinks/month EtOH consumption. He denies any illicit drug use. Physical Exam Vital Signs Vital Signs Date Time Temp Pulse Resp B/P (MAP) Pulse Ox O2 Delivery O2 Flow Rate FiO2 08/10/17 08:22 96 21 08/10/17 08:02 97.7 94 18 127/74 (91) 96 08/10/17 04:17 98.5 81 16 124/79 (94) 97 08/10/17 00:02 98.2 74 16 118/70 (86) 98 08/09/17 19:54 98.1 85 16 132/79 (96) 98 08/09/17 17:47 98.2 82 17 104/69 (81) 97 Room Air 08/09/17 15:16 98 Room Air 08/09/17 13:31 98.2 113 14 130/87 (101) 99 Physical Exam GENERAL: Patient is a well-nourished, well-developed male, awake and alert, not in respiratory distress. SKIN: Cool and moist. Good turgor. No generalized rash, no ecchymoses and no evidence of embolic lesions. keloid scars in his upper back. HEAD: Atraumatic. Normocephalic. No temporal wasting, or tenderness. EYES: [place] conjunctiva. No petechia or hemorrhage. Pupils equal, round and reactive to light. Has some mild periorbital edema and erythema. Extraocular movements full and intact. No scleral icterus. No injection or drainage. EARS, NOSE AND THROAT: Has indurated skin and erythema on the whole R side of face from below the right eye down to the submandibular area, with clusters of pustules close to the nose, with some crusting that looks like impetigo clusters. Nose without bleeding or purulent nasal discharge. Mucous membranes pink and moist. No oral lesions noted. No exudate. No oral thrush. No pain on tapping any of the teeth on R side lower jaw NECK: Trachea midline. Supple and not tender, no meningeal signs. Some lymphadenopathy R submandibular area CARDIOVASCULAR: Regular rate and rhythm. No murmurs, rubs or gallops heard RESPIRATORY: Clear to auscultation. Breath sounds equal bilaterally. No rales , wheezing or rhonchi ABDOMEN: Soft, non-tender, nondistended. Bowel sounds present and normoactive. No guarding. No rebound. No organomegaly. EXTREMITIES: No clubbing, cyanosis, or edema.No joint effusion, has good ROM. No calf tenderness. Well perfused and warm. NEUROLOGICAL: Awake and alert. Cranial nerves grossly intact. Motor grossly within normal limits. PSYCHIATRIC: Normal affect, calm and cooperative. LINE: No evidence of infection Laboratory Laboratory Tests Test 08/09/17 13:45 08/09/17 13:48 08/10/17 06:45 White Blood Count 16.1 17.1 Red Blood Count 5.58 4.78 Hemoglobin 15.9 14.0 Hematocrit 46.4 39.9 Mean Corpuscular Volume 83.2 83.5 Mean Corpuscular Hemoglobin 28.4 29.2 Mean Corpuscular Hemoglobin Concent 34.2 35.0 Red Cell Distribution Width 13.0 13.0 Platelet Count 327 299 Mean Platelet Volume 7.3 7.4 Neutrophils (%) (Auto) 68.7 89.5 Lymphocytes (%) (Auto) 12.8 6.9 Monocytes (%) (Auto) 17.9 3.6 Eosinophils (%) (Auto) 0.5 0.0 Basophils (%) (Auto) 0.1 0.0 Neutrophils # (Auto) 11.0 15.3 Lymphocytes # (Auto) 2.1 1.2 Monocytes # (Auto) 2.9 0.6 Eosinophils # (Auto) 0.1 0.0 Basophils # (Auto) 0.0 0.0 CBC Comment AUTO DIFF DIFF FINAL Differential Total Cells Counted 100 Neutrophils % (Manual) 66 Band Neutrophils % 7 Lymphocytes % 11 Monocytes % 15 Eosinophils % 1 Neutrophils # (Manual) 11.8 Differential Comment FINAL DIFF MANUAL Toxic Granulation 1+ Toxic Vacuolation PRESENT Platelet Estimate NORMAL Platelet Morphology Comment CLUMPED Prothrombin Time 12.3 Prothromb Time International Ratio 1.2 Activated Partial Thromboplast Time 34.5 Blood Urea Nitrogen 20 24 Creatinine 1.25 1.20 Random Glucose 103 215 Total Protein 8.5 7.1 Albumin 3.0 2.4 Calcium Level 9.1 8.3 Alkaline Phosphatase 93 74 Aspartate Amino Transf (AST/SGOT) 22 18 Alanine Aminotransferase (ALT/SGPT) 38 33 Total Bilirubin 0.4 0.3 Sodium Level 131 135 Potassium Level 3.8 4.0 Chloride Level 95 101 Carbon Dioxide Level 30.2 24.7 Anion Gap 6 9 Estimat Glomerular Filtration Rate 67 70 Lactic Acid Level 1.4 Date/Time Source Procedure Growth Status 08/09/17 15:10 Blood Line Aerobic Blood Culture - Preliminary NO GROWTH IN 1 DAY Resulted 08/09/17 15:10 Blood Line Anaerobic Blood Culture - Preliminary NO GROWTH IN 1 DAY Resulted Result Diagram: 08/10/17 0645 08/10/17 0645 Imaging RADIOLOGY STUDIES/FILMS REVIEWED Maxillofacial CT 08/09/17 1506 Signed Impressions: Service Date/Time: Wednesday, August 09, 2017 15:59 - CONCLUSION: 1. Subcutaneous stranding in the right infraorbital region extending laterally towards the temporal region. Findings are characteristic of regional cellulitis. No abscess. 2. Chronic sinusitis in the right ethmoid air cells, left sphenoid sinus and bilateral posterior maxillary antra. 3. Osseous structures are intact Kasi Pittman MD Assessment and Plan Assessment and Plan IMPRESSION Facial cellulitis R, ?had initially a small abscess in submandibular area - pustules and crusting in R cheek look impetigo, usually GAS but could be Staph aureus Sinusitis on CT Leukocytosis, likely worsened by steroids RECOMMENDATION Ancef for the cellulitis Add Levaquin, additional GPC and sinusitis coverage Stop Acyclovir, clinically does not look herpetic Stop steroids Follow progress Will determine course of Rx depending on clinical response I will follow along with you Thank you for this consultation Discussed Condition With Explained plan to the patient D/W Mary Narvaez MD Aug 10, 2017 12:41
[2017-08-10] MEDS: LEVOFLOXACIN 750 MG TAB PO SCH (14:01)
[2017-08-10] MEDS: ceFAZolin 2 GM PREMIX 50 ML IV SCH ×2 (15:01→22:36)
--- NOTE | 2017-08-10 15:27 | HHI.PR ---
Subjective Remarks Patient is restless this morning, he did not sleep at all for the last 4 days. He is unable to sleep due to anxiety. He reports his pain is adequately controlled. He reports the redness and swelling in his face has reduced slightly. Objective Vitals Vital Signs Date Time Temp Pulse Resp B/P (MAP) Pulse Ox O2 Delivery O2 Flow Rate FiO2 08/10/17 12:33 98.5 93 18 121/70 (87) 98 08/10/17 08:22 96 21 08/10/17 08:02 97.7 94 18 127/74 (91) 96 08/10/17 04:17 98.5 81 16 124/79 (94) 97 08/10/17 00:02 98.2 74 16 118/70 (86) 98 08/09/17 19:54 98.1 85 16 132/79 (96) 98 08/09/17 17:47 98.2 82 17 104/69 (81) 97 Room Air I/O 08/09/17 08/09/17 08/09/17 08/10/17 08/10/17 08/10/17 07:00 15:00 23:00 07:00 15:00 23:00 Intake Total 150 ml 518 ml Balance 150 ml 518 ml Intake IV Total 150 ml 518 ml # Voids 3 # Bowel Movements 0 Result Diagram: 08/10/17 0645 08/10/17 0645 Objective Remarks GENERAL: Well-nourished, well-developed patient. SKIN: Cellulitis of his right face extending from his chin to his right nasal bridge, firm warm tissue with superficial pustules over her right cheek HEAD: Normocephalic. EYES: No scleral icterus. No injection or drainage. NECK: Supple, trachea midline. No JVD or lymphadenopathy. CARDIOVASCULAR: Regular rate and rhythm without murmurs, gallops, or rubs. RESPIRATORY: Breath sounds equal bilaterally. No accessory muscle use. GASTROINTESTINAL: Abdomen soft, non-tender, nondistended. EXTREMITIES: No cyanosis, or edema. NEUROLOGICAL: Awake, alert, and oriented x 3. Non-focal. A/P Problem List: (1) Facial cellulitis ICD Code: L03.211 - Cellulitis of face Status: Acute Assessment and Plan Right Facial Cellulitis Failure of outpatient treatment with p.o. meds Continue Cefazolin IV and Levaquin IV (Levaquin for sinusitis coverage) Ophthalmology does not notice any ocular involvement No abscess on CT Steroids and acyclovir discontinued Appreciate infectious disease consult Appreciate ophthalmology consult Anxiety/Insomnia Xanax 0.5mg PRN Hyponatremia Nearly Resolved Will follow DVT Prophylaxis Bill Castrejon MD Aug 10, 2017 15:27
[2017-08-11 00:15] VITALS: BP 131/68; PULSE 76; RESP 14; TEMP 98; O2SAT 96
[2017-08-11 04:26] VITALS: BP 136/64; PULSE 79; RESP 14; TEMP 98; O2SAT 96
[2017-08-11] MEDS: SODIUM CHLOR 0.9% 1000 ML INJ 1,000 ML IV SCH (04:39)
[2017-08-11] MEDS: ALUMINUM/MAGNESIUM/SIMETH 30 ML CUP PO PRN (05:23)
[2017-08-11] MEDS: ceFAZolin 2 GM PREMIX 50 ML IV SCH ×2 (05:23→13:29)
[2017-08-11 07:56] VITALS: BP 119/72; PULSE 70; RESP 18; TEMP 98; O2SAT 94
[2017-08-11] MEDS ORDERED: PHARMACY ORDERED LAB ONE (08:45)
[2017-08-11] MEDS: SODIUM CHLORIDE 0.9% FLUSH 10 ML FLUSH IV FLUSH SCH (09:00)
[2017-08-11] MEDS: DOCUSATE SODIUM 50 MG/SENNA 8.6 MG TAB PO SCH (09:00)
--- NOTE | 2017-08-11 10:55 | HHI.IDPN ---
Subjective Subjective Remarks Patient is a 32-year-old male, with no significant past medical history, presented to the hospital complaining of swelling on his right face 4 days. Patient stated that about 10 days ago he noticed a painful bump on the left side of his neck. This was associated with some shooting pain behind his right ear. He had pain with movement of his neck, and he went to the emergency room, and he was diagnosed to have torticollis. He was given a Medrol Dosepak and Valium, and his symptoms improved. The pain on his neck and ear resolved, but he still has a lump on the left neck which had gotten smaller. About for 5 days ago, he felt a mildly tender bump on his right jaw that felt like it was the beginning of a pimple. It started getting bigger, and he notices some redness initially on his jaw. He went to an urgent care center and he received an IM antibiotic, and he was instructed to follow-up with his dentist. He was given clindamycin and Flagyl. Patient stated that he was taking his antibiotics as prescribed. The redness started spreading on his right cheek, and he went to see the surgeon, and the office so his face, and instructed him to go to the hospital for further evaluation and treatment. Highest temperature has been about 99. Denies any chills. He has not had any sore throat or any other respiratory complaint. There's been no GI or any urinary complaints. Patient states that he gets pimples on and off and last time he had them it was on his chest and on his back. He denies having any problem with ingrown hair, although he is very hairy. He has not had any episode of large abscesses that required medical attention and debridement or drainage. Patient has not been febrile since admission. CT of the face is showing evidence of cellulitis on the right side of his face. His WBC is elevated. Infectious disease consultation has been requested to evaluate the patient with facial cellulitis, and some lesions on his cheek. Notes reviewed No complaints R face cellulitis better Antibiotics Current Medications Ancef Levaquin Medications (Trade) Dose Ordered Sig/Lexis Route Start Time Stop Time Status Last Admin (NS Flush) 2 ml UNSCH PRN IV FLUSH 08/09/17 18:00 (NS Flush) 2 ml BID IV FLUSH 08/09/17 21:00 08/10/17 08:41 (Tylenol) 650 mg Q4H PRN PO 08/09/17 18:00 (Zofran Inj) 4 mg Q6H PRN IVP 08/09/17 18:00 (Narcan Inj) 0.4 mg UNSCH PRN IV PUSH 08/09/17 18:00 (Zeina-Colace) 1 tab BID PO 08/09/17 21:00 (Milk Of Magnesia Liq) 30 ml Q12H PRN PO 08/09/17 18:00 (Senokot) 17.2 mg Q12H PRN PO 08/09/17 18:00 (Dulcolax Supp) 10 mg DAILY PRN RECTAL 08/09/17 18:00 (Lactulose Liq) 30 ml DAILY PRN PO 08/09/17 18:00 (Marion 5-325 Mg) 1 tab Q6H PRN PO 08/09/17 18:00 (Marion 10-325 Mg) 1 tab Q6H PRN PO 08/09/17 18:00 (Morphine Inj) 2 mg Q4H PRN IV PUSH 08/09/17 18:00 Sodium Chloride 1,000 ml @ 100 mls/hr Q10H IV 08/09/17 20:00 08/11/17 04:39 (Mag-Al Plus Susp Liq) 30 ml PCHS PRN PO 08/10/17 00:45 08/11/17 05:23 (Xanax) 0.5 mg Q8H PRN PO 08/10/17 09:00 08/10/17 15:00 Cefazolin Sodium/ Dextrose 50 ml @ 100 mls/hr Q8H IV 08/10/17 14:00 08/11/17 05:23 (Levaquin) 750 mg Q24H PO 08/10/17 13:00 08/10/17 14:01 Lines PIV Past Medical History unremarkable Allergies: Coded Allergies: No Known Allergies (Unverified , 08/09/17) Objective . Vital Signs Date Time Temp Pulse Resp B/P (MAP) Pulse Ox O2 Delivery O2 Flow Rate FiO2 08/11/17 07:56 98.0 70 18 119/72 (88) 94 08/11/17 04:26 98.0 79 14 136/64 (88) 96 08/11/17 00:15 98.0 76 14 131/68 (89) 96 08/10/17 19:34 98.7 98 16 127/77 (94) 99 08/10/17 19:33 98 08/10/17 16:53 97.9 87 18 135/77 (96) 95 08/10/17 12:33 98.5 93 18 121/70 (87) 98 . Laboratory Tests Test 08/09/17 13:45 08/10/17 06:45 White Blood Count 16.1 TH/MM3 17.1 TH/MM3 Red Blood Count 5.58 MIL/MM3 4.78 MIL/MM3 Hemoglobin 15.9 GM/DL 14.0 GM/DL Hematocrit 46.4 % 39.9 % Mean Corpuscular Volume 83.2 FL 83.5 FL Mean Corpuscular Hemoglobin 28.4 PG 29.2 PG Mean Corpuscular Hemoglobin Concent 34.2 % 35.0 % Red Cell Distribution Width 13.0 % 13.0 % Platelet Count 327 TH/MM3 299 TH/MM3 Mean Platelet Volume 7.3 FL 7.4 FL Neutrophils (%) (Auto) 68.7 % 89.5 % Lymphocytes (%) (Auto) 12.8 % 6.9 % Monocytes (%) (Auto) 17.9 % 3.6 % Eosinophils (%) (Auto) 0.5 % 0.0 % Basophils (%) (Auto) 0.1 % 0.0 % Neutrophils # (Auto) 11.0 TH/MM3 15.3 TH/MM3 Lymphocytes # (Auto) 2.1 TH/MM3 1.2 TH/MM3 Monocytes # (Auto) 2.9 TH/MM3 0.6 TH/MM3 Eosinophils # (Auto) 0.1 TH/MM3 0.0 TH/MM3 Basophils # (Auto) 0.0 TH/MM3 0.0 TH/MM3 CBC Comment AUTO DIFF DIFF FINAL Differential Total Cells Counted 100 Neutrophils % (Manual) 66 % Band Neutrophils % 7 % Lymphocytes % 11 % Monocytes % 15 % Eosinophils % 1 % Neutrophils # (Manual) 11.8 TH/MM3 Differential Comment FINAL DIFF MANUAL Toxic Granulation 1+ Toxic Vacuolation PRESENT Platelet Estimate NORMAL Platelet Morphology Comment CLUMPED Laboratory Tests Test 08/09/17 13:45 08/09/17 13:48 08/10/17 06:45 Blood Urea Nitrogen 20 MG/DL 24 MG/DL Creatinine 1.25 MG/DL 1.20 MG/DL Random Glucose 103 MG/DL 215 MG/DL Total Protein 8.5 GM/DL 7.1 GM/DL Albumin 3.0 GM/DL 2.4 GM/DL Calcium Level 9.1 MG/DL 8.3 MG/DL Alkaline Phosphatase 93 U/L 74 U/L Aspartate Amino Transf (AST/SGOT) 22 U/L 18 U/L Alanine Aminotransferase (ALT/SGPT) 38 U/L 33 U/L Total Bilirubin 0.4 MG/DL 0.3 MG/DL Sodium Level 131 MEQ/L 135 MEQ/L Potassium Level 3.8 MEQ/L 4.0 MEQ/L Chloride Level 95 MEQ/L 101 MEQ/L Carbon Dioxide Level 30.2 MEQ/L 24.7 MEQ/L Anion Gap 6 MEQ/L 9 MEQ/L Estimat Glomerular Filtration Rate 67 ML/MIN 70 ML/MIN Lactic Acid Level 1.4 mmol/L Microbiology Date/Time Source Procedure Growth Status 08/09/17 15:10 Blood Line Aerobic Blood Culture - Preliminary NO GROWTH IN 1 DAY Resulted 08/09/17 15:10 Blood Line Anaerobic Blood Culture - Preliminary NO GROWTH IN 1 DAY Resulted 08/09/17 15:00 Blood Line Aerobic Blood Culture - Preliminary NO GROWTH IN 1 DAY Resulted 08/09/17 15:00 Blood Line Anaerobic Blood Culture - Preliminary NO GROWTH IN 1 DAY Resulted Imaging Last Impressions Maxillofacial CT 08/09/17 1506 Signed Impressions: Service Date/Time: Wednesday, August 09, 2017 15:59 - CONCLUSION: 1. Subcutaneous stranding in the right infraorbital region extending laterally towards the temporal region. Findings are characteristic of regional cellulitis. No abscess. 2. Chronic sinusitis in the right ethmoid air cells, left sphenoid sinus and bilateral posterior maxillary antra. 3. Osseous structures are intact Kasi Pittman MD Physical Exam GENERAL: well-developed male, awake and alert, not in respiratory distress. SKIN: Cool and moist. Good turgor. No generalized rash. keloid scars in his upper back. EYES: [employer] conjunctiva. No petechia or hemorrhage. Pupils equal, round and reactive to light. Has some mild periorbital edema and erythema. Extraocular movements full and intact. No scleral icterus. No injection or drainage. EARS, NOSE AND THROAT: Induration R side of face better, erythema better, skin drying with desquamation. Pustular areas now crusted and drying up. Nose without bleeding or purulent nasal discharge. Mucous membranes pink and moist. No oral lesions noted. No exudate. No oral thrush. No pain on tapping any of the teeth on R side lower jaw NECK: Trachea midline. Supple and not tender, no meningeal signs. Some lymphadenopathy R submandibular area CARDIOVASCULAR: Regular rate and rhythm. No murmurs, rubs or gallops heard RESPIRATORY: Clear to auscultation. Breath sounds equal bilaterally. No rales , wheezing or rhonchi ABDOMEN: Soft, non-tender, nondistended. Bowel sounds present and normoactive. No guarding. No rebound. No organomegaly. EXTREMITIES: No clubbing, cyanosis, or edema. No calf tenderness. Well perfused and warm. NEUROLOGICAL: Non-focal PSYCHIATRIC: Normal affect, calm and cooperative. LINE: No evidence of infection Assessment & Plan Remarks IMPRESSION Facial cellulitis R, ?had initially a small abscess in submandibular area - pustules and crusting in R cheek look impetigo, usually GAS but could be Staph aureus - better Leukocytosis, likely worsened by steroids RECOMMENDATION Give last dose Ancef this afternoon, then po Keflex 500 QID x 10 days - Keflex is 10 dollars at [facility] Use Cipro 500 BID instead of Levaquin on D/C - can get Rx for free at [facility] - give 10 days OK to D/C after dose of IV Ancef this afternoon Explained plan to patient D/W Mary Narvaez MD Aug 11, 2017 10:55
[2017-08-11 12:21] VITALS: BP 125/87; PULSE 74; RESP 18; TEMP 98.7; O2SAT 96
[2017-08-11] MEDS ORDERED: CIPR500T2 PO (13:00)
[2017-08-11] MEDS ORDERED: CEPH500T PO (13:00)
[2017-08-11] MEDS: LEVOFLOXACIN 750 MG TAB PO SCH (13:08)
--- NOTE | 2017-08-11 13:11 | HHI.DS ---
Discharge Summary Admission Date Aug 09, 2017 at 18:00 Discharge Date: Aug 11, 2017 Admitting Diagnosis right facial cellulitis (1) Facial cellulitis ICD Code: L03.211 - Cellulitis of face Status: Acute Procedures none Brief History - From Admission Written by Jayda Castro, acting as scribe for Dr. Myers on 08/09/17 at 18: 15. This is a 32-year-old male without any significant past medical history who presents to [facility] ED with complaints of right-sided facial pain, swelling and erythema x 4 days. Patient states on Monday he developed tender right sided bump followed by worsening redness, swelling and pain over the right side of the face. He went to urgent care on Monday and was prescribed clindamycin and Flagyl. Despite being compliant with medication, patient's symptoms continued to worsen. He was seen by a dentist this morning and was then referred to an oral surgeon who did not believe that he had a dental source for the right-sided facial rash and advised him to come into the ED. He endorses associated fever, chills and night sweats for the past 3 days. He did not record his temperature. He reports generalized feeling of malaise, nausea and poor appetite. States that he's had frontal headache for the past 3 days. He denies any difficulty swallowing or opening his mouth. He endorses associated nasal congestion and clear rhinorrhea but does report that he had some blood-tinged mucus this morning. He denies any vision changes or eye pain. He denies any ear pain or drainage. He denies any ill contacts at home. He denies any history of STDs. He does endorse history of chickenpox as a child. The past 2-3 weeks he states he's had mild sore throat and increased nasal congestion. He denies any chest pain or shortness of breath. Denies any vomiting or abdominal pain. CBC/BMP: 08/10/17 0645 08/10/17 0645 Significant Findings Laboratory Tests Test 08/09/17 13:45 08/09/17 13:48 08/10/17 06:45 White Blood Count 16.1 TH/MM3 (4.0-11.0) 17.1 TH/MM3 (4.0-11.0) Monocytes (%) (Auto) 17.9 % (0.0-8.0) Neutrophils # (Auto) 11.0 TH/MM3 (1.8-7.7) 15.3 TH/MM3 (1.8-7.7) Monocytes # (Auto) 2.9 TH/MM3 (0-0.9) Band Neutrophils % 7 % (0-6) Monocytes % 15 % (0-8) Neutrophils # (Manual) 11.8 TH/MM3 (1.8-7.7) Toxic Granulation 1+ (NORMAL) Toxic Vacuolation PRESENT (NONE SEEN) Platelet Morphology Comment CLUMPED (NORMAL) Prothrombin Time 12.3 SEC (9.8-11.6) Activated Partial Thromboplast Time 34.5 SEC (24.3-30.1) Blood Urea Nitrogen 20 MG/DL (7-18) 24 MG/DL (7-18) Total Protein 8.5 GM/DL (6.4-8.2) Albumin 3.0 GM/DL (3.4-5.0) 2.4 GM/DL (3.4-5.0) Sodium Level 131 MEQ/L (136-145) 135 MEQ/L (136-145) Chloride Level 95 MEQ/L (98-107) Estimat Glomerular Filtration Rate 67 ML/MIN (>89) 70 ML/MIN (>89) Neutrophils (%) (Auto) 89.5 % (16.0-70.0) Lymphocytes (%) (Auto) 6.9 % (9.0-44.0) Random Glucose 215 MG/DL (74-106) Calcium Level 8.3 MG/DL (8.5-10.1) PE at Discharge GENERAL: Well-nourished, well-developed patient. SKIN: Cellulitis of his right face extending from his chin to his right nasal bridge, firm warm tissue with superficial pustules over her right cheek HEAD: Normocephalic. EYES: No scleral icterus. No injection or drainage. NECK: Supple, trachea midline. No JVD or lymphadenopathy. CARDIOVASCULAR: Regular rate and rhythm without murmurs, gallops, or rubs. RESPIRATORY: Breath sounds equal bilaterally. No accessory muscle use. GASTROINTESTINAL: Abdomen soft, non-tender, nondistended. EXTREMITIES: No cyanosis, or edema. NEUROLOGICAL: Awake, alert, and oriented x 3. Non-focal. Hospital Course 32-year-old male who presented 2 days ago with right sided facial cellulitis that began as a sore on his chin but spread to his right side nasal bridge causing pain and discomfort. He failed outpatient treatment on p.o. antibiotics. Since admission he responded well to IV cefazolin and IV Levaquin. The cellulitis is at least 70% improved. He has been cleared by infectious disease. Recommendations are to take p.o. Keflex 500 mg 4 times daily 10 days and ciprofloxacin 500 mg twice daily 10 days per. Return for any worsening Pt Condition on Discharge: Good Discharge Disposition: Discharge Home Discharge Time: <= 30 minutes Discharge Instructions DIET: Follow Instructions for: As Tolerated, No Restrictions Activities you can perform: Regular-No Restrictions Bill Juárez MD Aug 11, 2017 13:11
== END 2017-08-11 16:35 | disposition home or self-care (01) | DRG 641 ==
LOC: NEPC 13:29 → NEDA 16:58 → OBSVTOIN 18:00 → NEPHCDU 19:23
PROVIDERS: ADMIT Family Medicine; ATTEND Family Medicine
DX: E87.1 Hypo-osmolality and hyponatremia (principal); E86.0 Dehydration; L03.211 Cellulitis of face; L03.213 Periorbital cellulitis; J32.2 Chronic ethmoidal sinusitis; J32.3 Chronic sphenoidal sinusitis; A46 Erysipelas; L01.09 Other impetigo; F41.9 Anxiety disorder, unspecified; G47.00 Insomnia, unspecified
CPT/HCPCS: 70487; 80053; 83605; 85007; 85025; 85027; 85610; 85730; 87040; 96365; 96375; J0133; J0690; J1885; J2920; J2930; J3370; J7030; J7040; J7050; Q9967